=== PATIENT | male | born 1980 | race Caucasian/White ===

== ENCOUNTER 2017-02-11 17:04 | Emergency (ER) | payer OTHER ==
[~2017-02-11] VITALS: Ht 175.3 cm; Wt 95.2 kg
[~2017-02-11 17:04] MED LIST: BACTRIM DS TABL1 TAB PO; DIFLUCAN PO; FLOMAX0.4 M1 PO; FLOMAX0.4 MG PO; LORTAB 5/500 TA1 TA1 PO; LOTRISONE CREAM45 GM TOP; NAPROSYN500 MG PO; PERCOCET5/325 PO; PHENERGAN DM PO; PHENERGAN25 MG PO; REGLAN10 MG PO; TESSALON200 MG PO; TYLOX 5/500 CAP1 CAP PO; TYLOX1 CAP 5/50 DOB; ZOFRAN PO
== END 2017-02-11 19:50 | disposition left against medical advice (07) ==
LOC: CED 17:04 → CFTX 19:50 → CED 19:50
DX: Z53.21 Procedure and treatment not carried out due to patient leaving prior to being seen by health care provider (principal)